=== PATIENT | female | born 1975 | race Native Hawaiian/Other Pacific Islander ===

== ENCOUNTER 2017-04-23 08:49 | Emergency (ER) | payer BC ==
[2017-04-23 09:15] VITALS: BP 117/60
[2017-04-23 09:45] LABS: Bilirubin,Urine NEG (Negative); Blood,Urine NEG (Negative); Ketones,Urine NEG (Negative); Leukocyte Esterase,Urine LG (Negative); Mucus,Urine FEW /HPF; Nitrite,Urine NEG (Negative); Protein,Urine <15 mg/dL mg/dL (Negative); Urobilinogen,Urine < 2.0 mg/dL (<2.0)
[2017-04-23] MEDS ORDERED: VALIUM IM ONE (10:07)
[2017-04-23] MEDS ORDERED: TORADOL IM ONE (10:08)
[2017-04-23 10:34] LABS: Basophils % (Auto) 0.1 % (0.0-1.8); Eosinophils % (Auto) 0.1 % (0.0-4.3); Hematocrit 35.3 % (30.3-42.9); Hemoglobin 11.2 gm/dl (10.1-14.3); Mean Corpuscular HGB Conc 32 % (30-34); Mean Corpuscular Hemoglobin 27 pg (28-32); Mean Corpuscular Volume 85 fl (79-97); Platelet Count 256 K/mm3 (140-440); Red Blood Count 4.16 M/mm3 (3.65-5.03); Red Cell Distribution Width 13.3 % (13.2-15.2); White Blood Count 17.4 K/mm3 (4.5-11.0)
[2017-04-23 10:41] LABS: INR 1.01 (0.87-1.13)
[2017-04-23 10:50] LABS: Creatine Kinase MB 1.6 ng/mL (0.0-4.0)
[2017-04-23 10:52] LABS: Alanine Aminotransferase 11 units/L (7-56); Albumin 4.2 g/dL (3.9-5); Albumin/Globulin Ratio 1.4 %; Alkaline Phosphatase 57 units/L (35-129); Anion Gap 19 mmol/L; Blood Urea Nitrogen 9 mg/dL (7-17); Calcium 8.9 mg/dL (8.4-10.2); Carbon Dioxide 21 mmol/L (22-30); Chloride 100.8 mmol/L (98-107); Creatine Kinase 155 units/L (30-135); Glucose 99 mg/dL (65-100); Potassium 4.1 mmol/L (3.6-5.0); Sodium 137 mmol/L (137-145); Total Protein 7.1 g/dL (6.3-8.2)
--- NOTE | 2017-04-23 11:02 | XRay Report ---
CHEST 2 VIEWS INDICATION: Dyspnea. COMPARISON: None similar at this institution. FINDINGS: PA and lateral chest radiographs demonstrate normal cardiomediastinal silhouette. Clear lungs. Mild thoracic spondylosis. CONCLUSION: No acute disease in the chest. Thank you for the opportunity to participate in this patient's care.
[2017-04-23] MEDS ORDERED: NACL ONE (12:08)
--- NOTE | 2017-04-23 13:12 | Cat Scan Report ---
CTA CHEST: History: Shortness of breath, back pain, elevated d-dimer Technique: Helical CT following IV contrast. Pulmonary embolus protocol. Sagittal and coronal reformatted images. Rotational MIP images. Findings: Contrast bolus is satisfactory. No pulmonary embolus is identified. The thyroid gland, tracheobronchial tree, esophagus, heart, pericardium, mediastinal vessels, lung restrepo are unremarkable. Very subtle nondisplaced fracture lines are identified along the inferior endplate T5. No significant loss of height or retropulsion of bony fragments. This is best demonstrated on image 37, series 3. Impression: No pulmonary embolus is identified. T5 inferior endplate fracture.
--- NOTE | 2017-04-23 18:49 | Emergency Department Report ---
Entered by MATTY CHAPA, acting as scribe for SANGEETA MATTHEWS NP. ED Back Pain/Injury HPI - General Chief Complaint: Back Pain/Injury Stated Complaint: BACK PAIN,PELON Time Seen by Provider: 04/23/17 09:59 Source: patient Limitations: Language Barrier - History of Present Illness Initial Comments: 41 y/o female with no significant PMHx presents to the ED c/o acute mid back pain that began this morning at 03:30. Patient states her upper back pain woke her out of her sleep. Rates pain an 8/10 in severity, which she describes as sharp in quality. Aggravated with deep breaths and movement, and alleviated with nothing. Associated symptom includes shortness of breath, but she denies any recent back trauma, heavy lifting, leg pain/swelling, numbness, tingling, fever, chills, nausea, vomiting, diarrhea, cough, chest pain, dysuria, urinary urgency and frequency, and increased thirst. Took 2 tablets of Tylenol this morning at 07:00 with no relief. Notes she experienced similar symptoms with associated chest pain once before 3 years ago, but she states this episode is worse. Reports she had an MRI done 3 years ago with normal findings. Denies any recent long travels. NKDA. VITALE Complaint: back pain -: This morning Time: 03:30 Similar Symptoms Previously: Yes (once 3 years ago) Place: home Radiation: none Severity: severe Severity scale (0 -10): 8 Quality: sharp Consistency: constant Improves With: none Worsens With: movement, deep breaths/cough Context: unknown Associated Symptoms: denies other symptoms, shortness of breath. denies: confusion, weakness, chest pain, numbness, difficulty walking, cough, difficulty urinating, diaphoresis, incontinence, fever/chills, constipation, headaches, abdominal pain, loss of appetite, malaise, nausea/vomiting, rash, seizure, syncope Treatments Prior to Arrival: acetaminophen - Related Data Previous Rx's Medication Instructions Recorded Last Taken Type Acetaminophen/Codeine [Tylenol #3] 1 tab PO Q6H PRN #12 tab 04/23/17 Unknown Rx Ibuprofen [Motrin] 600 mg PO Q8H PRN #15 tablet 04/23/17 Unknown Rx Miscellaneous Medical Supply 1 each MC DAILY #1 each 04/23/17 Unknown Rx [[place]] methOCARBAMOL [Robaxin TAB] 500 mg PO Q6H PRN #15 tablet 04/23/17 Unknown Rx Allergies Allergy/AdvReac Type Severity Reaction Status Date / Time No Known Allergies Allergy Unverified 04/23/17 09:14 ED Review of Systems Comment: All other systems reviewed and negative Constitutional: denies: chills, fever Eyes: denies: eye pain, eye discharge, vision change ENT: denies: ear pain, throat pain Respiratory: shortness of breath. denies: cough, wheezing Cardiovascular: denies: chest pain, palpitations, edema, syncope Endocrine: no symptoms reported Gastrointestinal: denies: abdominal pain, nausea, vomiting, diarrhea Genitourinary: denies: urgency, dysuria, frequency, hematuria, discharge, abnormal menses, dyspareunia Musculoskeletal: back pain (mid back pain). denies: joint swelling, arthralgia , myalgia Skin: denies: rash, lesions Neurological: denies: headache, weakness, numbness, paresthesias, confusion, abnormal gait, vertigo ED Past Medical Hx - Past Medical History Previous Medical History?: No - Surgical History Past Surgical History?: Yes Additional Surgical History: varicose viens - Family History Family history: no significant - Social History Smoking Status: Never Smoker Substance Use Type: None - Medications Home Medications: Home Medications Medication Instructions Recorded Confirmed Last Taken Type Acetaminophen/Codeine [Tylenol #3] 1 tab PO Q6H PRN #12 tab 04/23/17 Unknown Rx Ibuprofen [Motrin] 600 mg PO Q8H PRN #15 tablet 04/23/17 Unknown Rx Miscellaneous Medical Supply 1 each MC DAILY #1 each 04/23/17 Unknown Rx [[place]] methOCARBAMOL [Robaxin TAB] 500 mg PO Q6H PRN #15 tablet 04/23/17 Unknown Rx ED Physical Exam - General Limitations: Language Barrier General appearance: alert, in no apparent distress - Head Head exam: Present: atraumatic, normocephalic - Eye Eye exam: Present: normal appearance Pupils: Present: normal accommodation - ENT ENT exam: Present: normal exam, mucous membranes moist, normal external ear exam - Neck Neck exam: Present: normal inspection, full ROM. Absent: tenderness, meningismus, lymphadenopathy - Respiratory Respiratory exam: Present: normal lung sounds bilaterally. Absent: respiratory distress, wheezes, rales, rhonchi, stridor - Cardiovascular Cardiovascular Exam: Present: regular rate, normal rhythm, normal heart sounds. Absent: systolic murmur, diastolic murmur, rubs, gallop - GI/Abdominal GI/Abdominal exam: Present: soft, normal bowel sounds. Absent: distended - Extremities Exam Extremities exam: Present: normal inspection, full ROM, normal capillary refill. Absent: tenderness, pedal edema, joint swelling, calf tenderness - Back Exam Back exam: Present: full ROM, tenderness (thoracic vertebral and paraspinal tenderness), paraspinal tenderness (thoracic), vertebral tenderness (thoracic). Absent: normal inspection, CVA tenderness (R), CVA tenderness (L), muscle spasm, rash noted - Neurological Exam Neurological exam: Present: alert, oriented X3, normal gait - Psychiatric Psychiatric exam: Present: normal affect, normal mood - Skin Skin exam: Present: warm, dry, intact. Absent: rash ED Course Vital Signs 04/23/17 04/23/17 04/23/17 09:04 10:36 11:06 Temperature 98.6 F Pulse Rate 84 Respiratory 16 16 16 Rate Blood Pressure 117/60 O2 Sat by Pulse 100 Oximetry - Reevaluation(s) Reevaluation #1: 04/23/17 11:26 PT states she is feeling a little bit better sp medication. PT is aware that further images have been ordered. Reevaluation #2: 04/23/17 11:33 Pt's sister in law at bedside. PT has hx of abnormal chest XR, has report from 09-26-14. impression - Left upper lobe pulmonary nodule, possibly granuloma. Reevaluation #3: 04/23/17 13:27 PT also evaluated by Dr Escalera. PT aware of CT results. - Pulse Oximetry Interpretation Digit-Finger Initial Pulse Oximetry Readin Actions Taken: none ED Medical Decision Making - Lab Data Result diagrams: 04/23/17 10:14 04/23/17 10:14 Lab Results 04/23/17 04/23/17 04/23/17 Range/Units 09:25 10:14 10:14 WBC 17.4 H (4.5-11.0) K/mm3 RBC 4.16 (3.65-5.03) M/mm3 Hgb 11.2 (10.1-14.3) gm/dl Hct 35.3 (30.3-42.9) % MCV 85 (79-97) fl MCH 27 L (28-32) pg MCHC 32 (30-34) % RDW 13.3 (13.2-15.2) % Plt Count 256 (140-440) K/mm3 Lymph % (Auto) 6.4 L (13.4-35.0) % [place] % (Auto) 4.8 (0.0-7.3) % Eos % (Auto) 0.1 (0.0-4.3) % Baso % (Auto) 0.1 (0.0-1.8) % Lymph # 1.1 L (1.2-5.4) K/mm3 [place] # 0.8 (0.0-0.8) K/mm3 Eos # 0.0 (0.0-0.4) K/mm3 Baso # 0.0 (0.0-0.1) K/mm3 Seg Neutrophils % 88.6 H (40.0-70.0) % Seg Neutrophils # 15.4 H (1.8-7.7) K/mm3 PT 13.8 (12.2-14.9) Sec. INR 1.01 (0.87-1.13) APTT 28.0 (24.2-36.6) Sec. D-Dimer 805.88 H (0-234) ng/mlDDU Sodium (137-145) mmol/L Potassium (3.6-5.0) mmol/L Chloride (98-107) mmol/L Carbon Dioxide (22-30) mmol/L Anion Gap mmol/L BUN (7-17) mg/dL Creatinine (0.7-1.2) mg/dL Estimated GFR ml/min BUN/Creatinine Ratio % Glucose (65-100) mg/dL Calcium (8.4-10.2) mg/dL Total Bilirubin (0.1-1.2) mg/dL AST (5-40) units/L ALT (7-56) units/L Alkaline Phosphatase (35-129) units/L Total Creatine Kinase (30-135) units/L CK-MB (CK-2) (0.0-4.0) ng/mL CK-MB (CK-2) Rel Index (0-4) Troponin T (0.00-0.029) ng/mL NT-Pro-B Natriuret Pep (0-450) pg/mL Total Protein (6.3-8.2) g/dL Albumin (3.9-5) g/dL Albumin/Globulin Ratio % Urine Color Yellow (Yellow) Urine Turbidity Cloudy (Clear) Urine pH 6.0 (5.0-7.0) Ur Specific [place] 1.023 (1.003-1.030) Urine Protein <15 mg/dl (Negative) mg/dL Urine Glucose (UA) Neg (Negative) mg/dL Urine Ketones Neg (Negative) mg/dL Urine Blood Neg (Negative) Urine Nitrite Neg (Negative) Urine Bilirubin Neg (Negative) Urine Urobilinogen < 2.0 (<2.0) mg/dL Ur Leukocyte Esterase Lg (Negative) Urine WBC (Auto) 6.0 (0.0-6.0) /HPF Urine RBC (Auto) 3.0 (0.0-6.0) /HPF U Epithel Cells (Auto) 37.0 H (0-13.0) /HPF Urine Mucus Few /HPF Urine HCG, Qual Negative (Negative) 04/23/17 04/23/17 Range/Units 10:14 10:14 WBC (4.5-11.0) K/mm3 RBC (3.65-5.03) M/mm3 Hgb (10.1-14.3) gm/dl Hct (30.3-42.9) % MCV (79-97) fl MCH (28-32) pg MCHC (30-34) % RDW (13.2-15.2) % Plt Count (140-440) K/mm3 Lymph % (Auto) (13.4-35.0) % [place] % (Auto) (0.0-7.3) % Eos % (Auto) (0.0-4.3) % Baso % (Auto) (0.0-1.8) % Lymph # (1.2-5.4) K/mm3 [place] # (0.0-0.8) K/mm3 Eos # (0.0-0.4) K/mm3 Baso # (0.0-0.1) K/mm3 Seg Neutrophils % (40.0-70.0) % Seg Neutrophils # (1.8-7.7) K/mm3 PT (12.2-14.9) Sec. INR (0.87-1.13) APTT (24.2-36.6) Sec. D-Dimer (0-234) ng/mlDDU Sodium 137 (137-145) mmol/L Potassium 4.1 (3.6-5.0) mmol/L Chloride 100.8 (98-107) mmol/L Carbon Dioxide 21 L (22-30) mmol/L Anion Gap 19 mmol/L BUN 9 (7-17) mg/dL Creatinine 0.4 L (0.7-1.2) mg/dL Estimated GFR > 60 ml/min BUN/Creatinine Ratio 22.50 % Glucose 99 (65-100) mg/dL Calcium 8.9 (8.4-10.2) mg/dL Total Bilirubin 0.30 (0.1-1.2) mg/dL AST 16 (5-40) units/L ALT 11 (7-56) units/L Alkaline Phosphatase 57 (35-129) units/L Total Creatine Kinase 155 H (30-135) units/L CK-MB (CK-2) 1.6 (0.0-4.0) ng/mL CK-MB (CK-2) Rel Index 1.0 (0-4) Troponin T < 0.010 (0.00-0.029) ng/mL NT-Pro-B Natriuret Pep 97.86 (0-450) pg/mL Total Protein 7.1 (6.3-8.2) g/dL Albumin 4.2 (3.9-5) g/dL Albumin/Globulin Ratio 1.4 % Urine Color (Yellow) Urine Turbidity (Clear) Urine pH (5.0-7.0) Ur Specific [place] (1.003-1.030) Urine Protein (Negative) mg/dL Urine Glucose (UA) (Negative) mg/dL Urine Ketones (Negative) mg/dL Urine Blood (Negative) Urine Nitrite (Negative) Urine Bilirubin (Negative) Urine Urobilinogen (<2.0) mg/dL Ur Leukocyte Esterase (Negative) Urine WBC (Auto) (0.0-6.0) /HPF Urine RBC (Auto) (0.0-6.0) /HPF U Epithel Cells (Auto) (0-13.0) /HPF Urine Mucus /HPF Urine HCG, Qual (Negative) - EKG Data -: EKG Interpreted by Me (and ED MD ) EKG shows normal: sinus rhythm Rate: normal (79 BPM ) - Radiology Data Radiology results: report reviewed CXR - nap CTA - no PE, non displaced inferior endplate fx of T5, no height loss - Differential Diagnosis strain, ddd, cad, pe Critical Care Time: No ED Disposition Clinical Impression: Acute back pain Qualifiers: Back pain location: thoracic back pain Back pain laterality: midline Qualified Code(s): M54.6 - Pain in thoracic spine Closed T5 spinal fracture Qualifiers: Encounter type: initial encounter Fracture morphology: unspecified fracture morphology Qualified Code(s): S22.059A - Unspecified fracture of T5-T6 vertebra , initial encounter for closed fracture Disposition: TO HOME OR SELFCARE Is pt being admited?: No Does the pt Need Aspirin: No Condition: Stable Instructions: Vertebral Compression Fracture (ED), Back Pain (ED) Additional Instructions: No driving or alcohol if you are needed to take Tylenol #3 or Robaxin for your pain Try treating your pain with Motrin and Robaxin first Follow up with ORTHO in 3-5 days Call [facility] orthotics for back brace - [phone] Return to the ED if you have chest pain, shortness of breath or fevers or concerns Prescriptions: Acetaminophen/Codeine [Tylenol #3] 1 tab PO Q6H PRN #12 tab PRN Reason: Pain , Severe (7-10) Ibuprofen [Motrin] 600 mg PO Q8H PRN #15 tablet PRN Reason: Pain methOCARBAMOL [Robaxin TAB] 500 mg PO Q6H PRN #15 tablet PRN Reason: Muscle Spasm Miscellaneous Medical Supply [[place]] 1 each MC DAILY #1 each Referrals: PRIMARY CARE, [Primary Care Provider] - 3-5 Days TRAVIS JULIEN MD [Staff Physician] - 3-5 Days Forms: Accompanied Note Time of Disposition: 14:05 Print Language: MALIAN This documentation as recorded by the SAMMI mojica JASMINE,accurately reflects the service I personally performed and the decisions made by BYRON mccray TRACY M, NP.
== END 2017-04-23 14:23 | disposition home or self-care (01) ==
LOC: ED 08:49
DX: S22.059A Unspecified fracture of T5-T6 vertebra, initial encounter for closed fracture (principal); M54.6 Pain in thoracic spine; X58.XXXA Exposure to other specified factors, initial encounter; Y93.9 Activity, unspecified; Y92.9 Unspecified place or not applicable; Y99.9 Unspecified external cause status
CPT/HCPCS: 36415; 71020; 71275; 80053; 81001; 81025; 82550; 82553; 83880; 84484; 85025; 85379; 85610; 85730; 93005; 93010; 96372; 99284; J1885; J3360; Q9967

== ENCOUNTER 2018-05-11 12:20 | Emergency (ER) | payer BC ==
[2018-05-11] MEDS ORDERED: XANAX PO ONE (13:06)
--- NOTE | 2018-05-11 13:09 | Emergency Department Report ---
ED Anxiety HPI - General Chief Complaint: Anxiety Stated Complaint: ANXIETY Time Seen by Provider: 05/11/18 12:49 Source: patient Mode of arrival: Ambulatory - History of Present Illness MD Complaint: anxiety -: Sudden, week(s) Severity: moderate Quality: intermittant Provoking factors: medication change, other (new sz) Improves With: nothing Worsens With: thinking about event Associated symptoms: shortness of breath. denies: chest pain, palpitations, diaphoresis, denies other symptoms, confusion, cough, fever/chills, headaches, anorexia, malaise, nausea/vomiting, rash, seizure, syncope, weakness - Related Data Home Medications: Previous Rx's Medication Instructions Recorded Last Taken Type hydrOXYzine PAMOATE [Vistaril] 25 mg PO Q6HR PRN #20 capsule 05/11/18 Unknown Rx Allergies/Adverse Reactions: Allergies Allergy/AdvReac Type Severity Reaction Status Date / Time No Known Allergies Allergy Unverified 04/23/17 09:14 ED Review of Systems ROS: Stated complaint: ANXIETY Other details as noted in HPI Comment: All other systems reviewed and negative Constitutional: denies: chills, fever Eyes: denies: eye pain ENT: denies: ear pain, throat pain Respiratory: shortness of breath. denies: cough, orthopnea Cardiovascular: palpitations. denies: chest pain, dyspnea on exertion, orthopnea, edema, syncope, paroxysmal nocturnal dyspnea Endocrine: denies: flushing, intolerance to cold, intolerance to heat Gastrointestinal: denies: abdominal pain, nausea, vomiting Genitourinary: denies: urgency, dysuria Musculoskeletal: denies: back pain Skin: denies: rash, lesions Neurological: denies: headache, weakness Psychiatric: denies: anxiety, depression Hematological/Lymphatic: denies: easy bleeding ED Past Medical Hx - Past Medical History Hx Seizures: Yes - Surgical History Past Surgical History?: No Additional Surgical History: varicose viens - Family History Family history: other (family hx sz) - Social History Smoking Status: Never Smoker Substance Use Type: None - Medications Home Medications: Home Medications Medication Instructions Recorded Confirmed Last Taken Type hydrOXYzine PAMOATE [Vistaril] 25 mg PO Q6HR PRN #20 capsule 05/11/18 Unknown Rx ED Physical Exam - General Limitations: Language Barrier General appearance: alert, anxious - Head Head exam: Present: normocephalic - Eye Eye exam: Present: PERRL - ENT ENT exam: Present: mucous membranes moist - Neck Neck exam: Present: normal inspection. Absent: tenderness, meningismus - Respiratory Respiratory exam: Present: normal lung sounds bilaterally - Cardiovascular Cardiovascular Exam: Present: regular rate, normal heart sounds - GI/Abdominal GI/Abdominal exam: Present: soft, normal bowel sounds - Rectal Rectal exam: Present: deferred - Extremities Exam Extremities exam: Present: normal inspection, full ROM. Absent: tenderness - Back Exam Back exam: Present: normal inspection, full ROM. 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 she does not have sob or cp unless anxious this anxiety has increased over the last few weeks and comes and goes. recent medical work up post sz at [place] was neg per ED Medical Decision Making - Medical Decision Making recent medical work up due to new sz normal - Differential Diagnosis anxiety- recent med workup due to sz all normal. Critical care attestation.: If time is entered above; I have spent that time in minutes in the direct care of this critically ill patient, excluding procedure time. ED Disposition Clinical Impression: Anxiety, History of seizure Disposition: DC-01 TO HOME OR SELFCARE Is pt being admited?: No Does the pt Need Aspirin: No Condition: Stable Instructions: Anxiety (ED) Additional Instructions: follow up with psychiatry decrease caffeine and other stimulants exercise every day meds as ordered talk with your neurologist Prescriptions: hydrOXYzine PAMOATE [Vistaril] 25 mg PO Q6HR PRN #20 capsule PRN Reason: Anxiety Referrals: ARISTEO ESPAÑA NP [Advanced Practice Nurse] - 3-5 Days DELISA JJ FNP [Advanced Practice Nurse] - 3-5 Days MARY JO STARK MD [Staff Physician] - 3-5 Days Time of Disposition: 13:05
[2018-05-11 13:29] VITALS: BP 120/78
== END 2018-05-11 13:45 | disposition home or self-care (01) ==
LOC: ED 12:20
DX: F41.9 Anxiety disorder, unspecified (principal)
CPT/HCPCS: 99282